=== PATIENT | male | born 1950 | race African-American/Black ===

== ENCOUNTER 2023-01-24 09:37 | Emergency (ER) | payer MEDICARE, MEDICAID ==
[~2023-01-24] VITALS: Ht 175.3 cm; Wt 83.0 kg
[2023-01-24 09:42] VITALS: O2SAT 99
[2023-01-24 10:15] VITALS: TEMP 97.9
[2023-01-24] MEDS ORDERED: ACETAMINOPHEN 325MG TABLET PO ONE (10:15)
[2023-01-24] MEDS ORDERED: TOPUD PO (12:17)
[2023-01-24 13:06] VITALS: BP 130/89; PULSE 70; RESP 18
== END 2023-01-24 13:06 | disposition home or self-care (01) ==
LOC: ER 09:37
DX: M54.9 Dorsalgia, unspecified (principal); R51.9 Headache, unspecified; E11.9 Type 2 diabetes mellitus without complications; I10 Essential (primary) hypertension; F17.210 Nicotine dependence, cigarettes, uncomplicated; F19.90 Other psychoactive substance use, unspecified, uncomplicated; Z98.890 Other specified postprocedural states
CPT/HCPCS: 72100; 99284

== ENCOUNTER 2023-12-30 01:31 | Emergency (ER) | payer BC, MEDICAID ==
[~2023-12-30] VITALS: Ht 172.7 cm; Wt 77.0 kg
[~2023-12-30 01:31] MED LIST: TOPUD PO
[2023-12-30 01:55] VITALS: O2SAT 98
[2023-12-30] MEDS: ACETAMINOPHEN 325MG TABLET PO ONE (02:50)
[2023-12-30] MEDS ORDERED: NAPR-681 MT (05:26)
[2023-12-30 05:30] VITALS: BP 169/93; PULSE 84; RESP 16; TEMP 36.44736; O2SAT 100
== END 2023-12-30 06:42 | disposition home or self-care (01) ==
LOC: ER 01:31
DX: S70.02XA Contusion of left hip, initial encounter (principal); S80.12XA Contusion of left lower leg, initial encounter; E11.9 Type 2 diabetes mellitus without complications; I10 Essential (primary) hypertension; Z98.890 Other specified postprocedural states; W01.0XXA Fall on same level from slipping, tripping and stumbling without subsequent striking against object, initial encounter; Y93.89 Activity, other specified; Y92.89 Other specified places as the place of occurrence of the external cause; Y99.8 Other external cause status
CPT/HCPCS: 72100; 73521; 99284